=== PATIENT | female | born 1960 | race Caucasian/White ===

== ENCOUNTER 2018-04-29 09:11 | Emergency (ER) | payer OTHER ==
[~2018-04-29] VITALS: Ht 157.5 cm; Wt 72.6 kg
[~2018-04-29 09:11] MED LIST: CYMBALTA30 MG; LEXAPRO10 MG PO; NEXIUM40 MG; SEROQUEL25 MG PO; SPIRIVA18 MCG INH; SPRIX1 EACH
[2018-04-29] MEDS ORDERED: ALBUTEROL/IPRATROPIUM 3 ML NEB NEB ONE (09:30)
[2018-04-29] MEDS ORDERED: AZITHROMYCIN 500MG/NS 250 ML 250 ML IV ONE (09:30)
[2018-04-29] MEDS ORDERED: CEFTRIAXONE SOD 1 GM VIAL IV ONE (09:30)
[2018-04-29] MEDS ORDERED: DEXAMETHASONE SOD PHOS 10 MG/1 ML VIAL IV NR (09:45)
[2018-04-29 10:18] LABS: BASOPHILS % 0.3 % (0.0-1.0); EOSINOPHILS # (AUTO) 0.1 (0.0-0.4); EOSINOPHILS % 0.4 % (0.0-6.0); HEMATOCRIT 35.6 % (34.2-44.1); HEMOGLOBIN 11.6 g/dL (12.0-16.0); LYMPHOCYTES % 35.5 % (18.0-39.1); MEAN CORPUSCULAR HEMOGLOBIN 31.2 pg (28-32); MEAN CORPUSCULAR HGB CONC 32.6 g/dL (31-35); MEAN CORPUSCULAR VOLUME 95.7 fL (81-99); MONOCYTES # (AUTO) 0.5 (0.2-0.8); NEUTROPHILS # (AUTO) 6.8 (2.1-6.9); NEUTROPHILS % 59.3 % (38.7-80.0); PLATELET COUNT 405 x10e3/uL (140-360); RED BLOOD COUNT 3.72 x10e6/uL (3.6-5.1)
[2018-04-29 10:33] LABS: ANION GAP 15.9 mmol/L (8-16); BLOOD UREA NITROGEN 7 mg/dL (7-26); BUN/CREATININE RATIO 10 (6-25); CALCIUM 9.8 mg/dL (8.4-10.2); CARBON DIOXIDE 35 mmol/L (22-29); CHLORIDE 93 mmol/L (98-107); CREATININE, SERUM 0.69 mg/dL (0.57-1.11); EST GLOMERULAR FILTRATION RATE > 60 ML/MIN (60-); GLUCOSE 78 mg/dL (74-118); SODIUM 141 mmol/L (136-145)
[2018-04-29 10:37] LABS: POTASSIUM 2.9 mmol/L (3.5-5.1)
--- NOTE | 2018-04-29 11:22 | Diagnostic Imaging Report ---
PROCEDURE: Frontal and lateral views of the chest. COMPARISON: None. INDICATIONS: COPD FINDINGS: Lines/tubes: None. Lungs: Low lung volumes. The left hemidiaphragm is elevated. There are patchy opacities at the lung bases, right greater than left. No evidence of pulmonary edema. Pleura: Possible trace bilateral pleural effusion. No evidence of pneumothorax. Heart and mediastinum: The cardiomediastinal silhouette is unremarkable. Atherosclerotic calcifications of the aortic arch. Bones: No acute bony abnormality. Subacute left posterolateral sixth rib fracture. IMPRESSION: Patchy opacities at the lung bases, likely atelectasis. Superimposed aspiration or pneumonia is possible in the appropriate clinical context. Elevation of the left hemidiaphragm. Findings may reflect phrenic nerve palsy and fluoroscopic "sniff test" or correlation with any prior outside imaging is recommended for evaluation. Subacute left posterolateral sixth rib fracture. Dictated by: MASHA PIERCE M.D. on 04/29/2018 at 11:27 Electronically approved by: MASHA PIERCE M.D. on 04/29/2018 at 11:27
[2018-04-29] MEDS ORDERED: POTASSIUM CHLORIDE 20MEQ/100ML 100 ML IV ONE (11:45)
[2018-04-29] MEDS ORDERED: POTASSIUM CHLORIDE 10 MEQ TABCR PO NR (12:00)
[2018-04-29] MEDS ORDERED: SODIUM CHLORIDE 0.9% 250ML 250 ML ONE (13:04)
[2018-04-29] MEDS ORDERED: SODIUM CHLORIDE 0.9% 250ML 250 ML IV ONE (13:15)
== END 2018-04-29 14:46 | disposition home or self-care (01) ==
LOC: ER 09:11
DX: R06.00 Dyspnea, unspecified (principal); J18.9 Pneumonia, unspecified organism; J42 Unspecified chronic bronchitis
CPT/HCPCS: 36415; 71046; 80048; 85025; 93005; 94640; 99284; J0456; J0696; J1100; J3480; J7050